=== PATIENT | female | born 1945 | race Caucasian/White ===

== ENCOUNTER 2022-09-29 14:53 | Inpatient (IN) | payer MEDICARE ==
[~2022-09-29] VITALS: Ht 175.3 cm; Wt 63.5 kg
[2022-09-29 15:33] LABS: HEMATOCRIT 35.3 % (31.2-41.9); MEAN CORPUSCULAR HEMOGLOBIN 28.5 uug (24.7-32.8); MEAN CORPUSCULAR VOLUME 87.5 fL (75.5-95.3); PLATELET COUNT (AUTO) 226 K/uL (179-408)
--- NOTE | 2022-09-29 15:40 | NUR ---
76 years old female sent to er for gravely disable awaiting for medical clearance.quiet cooperative with care.
[2022-09-29 16:00] LABS: ALANINE AMINOTRANSFERASE 17 U/L (14-59); ALKALINE PHOSPHATASE 67 U/L (50-136); ASPARTATE AMINOTRANSFERASE 15 U/L (15-37); BILIRUBIN,DIRECT 0.2 mg/dL (0.0-0.2); BILIRUBIN,TOTAL 0.3 mg/dL (0.2-1.0); CARBON DIOXIDE 29 mmol/L (21-32); CHLORIDE 106 mmol/L (98-107); CREATININE 0.8 mg/dL (0.6-1.3); GLUCOSE 100 mg/dL (74-106); POTASSIUM 4.2 mmol/L (3.5-5.1); TOTAL PROTEIN, SERUM 6.6 g/dL (6.4-8.2); UREA NITROGEN, BLOOD 19 mg/dL (7-18)
[2022-09-29 16:06] LABS: ETHANOL < 3 MG/DL (0-0)
[2022-09-29 16:10] LABS: *BILIRUBIN,URIN NEGATIVE (NEGATIVE); *CLARITY,URINE CLEAR (CLEAR); *COLOR,URINE YELLOW (YELLOW); *KETONES,URINE TRACE (NEGATIVE); *UROBILINOGEN,URINE 0.2 E.U./dl (NORMAL); LEUKOCYTE ESTERASE ,URINE NEGATIVE (NEGATIVE); NITRITE, URINE NEGATIVE (NEGATIVE); PH,URINE 5.5 (5.0-8.0); UGLUCOSE NEGATIVE (NEGATIVE)
[2022-09-29 16:19] LABS: *BLOOD, URINE TRACE (NEGATIVE)
[2022-09-29 16:19] LABS: ACETAMINOPHEN < 2.0 ug/mL (10-30)
[2022-09-29 16:28] LABS: *AMPHETAMINE, URINE NEGATIVE (NEGATIVE); *CANNABINOID, URINE NEGATIVE (NEGATIVE); *COCCAINE, URINE NEGATIVE (NEGATIVE); *PHENCYCLIDINE SCREEN,URINE NEGATIVE (NEGATIVE)
[2022-09-29 16:38] LABS: RBC,URINE 0-3 /HPF (0-3); WBC,URINE 0-3 /HPF (0-3)
--- NOTE | 2022-09-29 16:55 | NUR ---
Info for pt's daughter hank provided by [facility], .
--- NOTE | 2022-09-29 17:15 | NUR ---
patient medically cleared by Dr Wells.
--- NOTE | 2022-09-29 17:18 | NUR ---
call [phone] Grazyna for Pet evaluation and stated she will visit patient in ER later.
--- NOTE | 2022-09-29 19:04 | NUR ---
report endorsed to incoming RN all questions answered, Pet team at bedside to evaluate patient.
--- NOTE | 2022-09-29 19:31 | NUR ---
Pt. in room, wandering around, re-directing back to her room
[2022-09-29 21:30] VITALS: BP 131/60
[2022-09-29] MEDS ORDERED: ACETAMINOPHEN 325 MG TABLET PO PRN (21:45)
[2022-09-29] MEDS ORDERED: ZOLPIDEM 5 MG TABLET PO PRN (21:45)
[2022-09-29] MEDS ORDERED: MAG HYDROX/AL HYDROX/SIMETH 30 ML LIQUID UDC PO PRN (21:45)
[2022-09-29] MEDS ORDERED: MAGNESIUM HYDROXIDE 30 ML LIQUID UDC PO PRN (21:45)
--- NOTE | 2022-09-30 06:35 | NUR ---
Admission Note: Received 76 y/o female patient on a 5150 hold d/t being gravely disabled. Patient came from [facility] after being found wandering the streets, at her home, in the rain. Patient was experiencing paranoia, increased anxiety, and making delusional statements such as "my neighbors are going to kill me." "They're trying to poison me." "They're out to put a hit on me." Upon face to face assessment, patient was AOx2, somewhat confused, disoriented, and disheveled. She was making delusional statements such as "I know I'll be alright because my good friends Arvin and Flora Eisenberg are going to follow-up with me and look after me." Although she has an unsteady gait, she is self-ambulatory, and she has good balance when standing still. Pt was given her advisement with original copy placed into her Patient's Handbook at her bedside table. Briefly gave a tour of the unit and explained the rules of MHU. Personal belongings were accounted for and put into safe via HR ADMINISTRATIVE ASSISTANT and this nurse. Pt is a poor historian and strongly believes what she tells you is correct, when in actuality is incorrect. Pt is contracted for safety, and denies SI/HI. This pt will be in the care of 'mohan Rosen and Samuel.
[2022-09-30 07:30] VITALS: BP 141/41
--- NOTE | 2022-09-30 07:47 | NUR ---
Received patient in her room sitting on the chair, elevated mood, "Hello I know you, I am fine". patient feels she knows nurse, no S/S of discomforts noted, patient with lab getting blood draw at this time.
[2022-09-30 07:59] LABS: BILIRUBIN,TOTAL 0.4 mg/dL (0.2-1.0); CREATININE 0.7 mg/dL (0.6-1.3); POTASSIUM 4.4 mmol/L (3.5-5.1); TOTAL PROTEIN, SERUM 7.9 g/dL (6.4-8.2)
[2022-09-30 12:51] LABS: HEMATOCRIT 38.4 % (31.2-41.9); MEAN CORPUSCULAR HEMOGLOBIN 28.3 uug (24.7-32.8); MEAN CORPUSCULAR VOLUME 88.7 fL (75.5-95.3); PLATELET COUNT (AUTO) 240 K/uL (179-408)
[2022-09-30 16:00] VITALS: BP 131/53
--- NOTE | 2022-09-30 16:29 | NUR ---
MEKA Initial Discharge Note: Pt was brought to [facility] from [facility] [address] [address] . MEKA contacted pt's relative, Maddie ([phone]) and left a voicemail for a call back. MEKA will continue to work with pt, family and MD to ensure a safe and proper discharge plan.
--- NOTE | 2022-09-30 17:36 | NUR ---
Patient pacing around, hyperverbal, suspicious, paranoid, "I need a weapon, she trying to kill me, I want go, they have bomb". walking around at time pushing exit doors, patient was evaluated by dr Rosen, [facility]. patient also seen by SLURRY CONTROL TENDER, Patient stable, no S/S of discomfort.
[2022-09-30 20:13] LABS: THYROID STIMULATING HORMONE 2.131 mIU/mL (0.358-3.740)
[2022-09-30] MEDS ORDERED: OLANZAPINE 2.5 MG TABLET PO SCH (21:00)
--- NOTE | 2022-09-30 21:16 | NUR ---
GPS: Pt.is anxious,confused,paranoid and suspicious. Reality re-orientation provided prn. Has poor insight and judgment to present situation. Refused bedtime med.despite explanation of risks vs benefits x3. Safety checks Q15 minutes to ensure pt's safety and to know whereabouts. Denies pain. Will continue to re-direct prn.
[2022-09-30 21:21] VITALS: BP_SYST 106; BP_SYST 129; BP_DIAS 58; BP_DIAS 73
--- NOTE | 2022-09-30 23:35 | NUR ---
GPS: Pt.refused to have her nares swabbed for MRSA despite explanation of importance.
--- NOTE | 2022-10-01 01:16 | NUR ---
GPS: Pt.remains awake at this time. Paranoid,suspicious and confused. Refuses Benadryl 50 mg PO for sleep when offered numerous times. Has poor insight and impaired judgment. Needs frequent re-assurance and re-direction from staff. Safety emphasized. Will continue to monitor.
[2022-10-01] MEDS: OLANZAPINE 2.5 MG TABLET PO SCH ×2 (08:28→17:00)
--- NOTE | 2022-10-01 09:39 | NUR ---
Nursing- Poor insight, wanders around, difficulty redirecting patient , taking stuffs from other patient's room. Refusing care, refusing med. ref. v/s , Constantly being redirected , gets combative with staff. Patient put in damien-chair, for close supervision. Monitored for safety
--- NOTE | 2022-10-01 11:00 | NUR ---
Nursing -Patient has elevated WBC 18 (09/30/22) Jayashree RIDER in to see patient , made aware
--- NOTE | 2022-10-01 15:23 | NUR ---
Nursing- Out of the damien-chair, interacting with her peers, speech confused, incoherent, wanders around, constantly needing redirections, difficulty following directions.
[2022-10-01 16:00] VITALS: BP 146/36
[2022-10-01 20:00] VITALS: BP 137/50
--- NOTE | 2022-10-02 06:43 | NUR ---
GPS: Pt.slept 5.30 last night. Remains confused,paranoid and suspicious but more re-directable. Insight and judgment remains impaired. Safety emphasized. Needs attended. Will continue to monitor behavior.
[2022-10-02 08:00] VITALS: BP 123/51
[2022-10-02] MEDS: OLANZAPINE 2.5 MG TABLET PO SCH ×2 (09:00→17:00)
--- NOTE | 2022-10-02 09:00 | NUR ---
Faxed Angelo petition to court ,follow up to court spoke with Ange.
--- NOTE | 2022-10-02 11:00 | NUR ---
Nursing- Patient continue to wander around, goes room to room, constantly needing redirections. gets argumentative, intrusive , confused , disoriented , in and out of the activity room . Keep coming into the Nurses station .Safety reviewed , continue to emphasized.
[2022-10-02] MEDS ORDERED: OLANZAPINE 10 MG VIAL IM ONE (16:00)
--- NOTE | 2022-10-02 16:00 | NUR ---
Nursing- Per Security report, they noted patient pulled fire alarm in the activity room, patient does not remember doing it . Dr Rosen was called by manufacturing business analyst order received to administer Zyprexa 5 mg IM, Dr Rosen was informed of patients' multiple drug allergy. Boat Outboard Engine Mechanic was called to assist staff in administering IM med., uncooperative during the zyprexa IM administration
--- NOTE | 2022-10-02 16:00 | NUR ---
spoke with Dr. Rosen regarding patient has multiple drug allergies ,per Dr. Jessika burnett to give Zyprexa IM.
[2022-10-02 16:15] VITALS: BP 136/66
[2022-10-02 20:11] VITALS: BP 135/55
--- NOTE | 2022-10-03 06:26 | NUR ---
GPS: Pt.slept 5.45 last night. Remains confused,suspicious,labile and easily irritable when being re-directed. Safe environment provided. Insight and judgment remains impaired. Re-assured prn. Will continue to monitor behavior.
[2022-10-03 07:53] VITALS: BP 124/52
[2022-10-03] MEDS: OLANZAPINE 2.5 MG TABLET PO SCH ×2 (08:52→16:11)
--- NOTE | 2022-10-03 15:16 | NUR ---
GPS: Nursing Notes: Noncompliance With Medications: Patient is awake and responding to her name, labile, disoriented, gets easily irritable when redirected, refusing her medications, believes that she is a travel registered nurse oncology for her roommate, loud and pressured speech at times, isolative in her room, interactive with her roommate, unable to formulate a viable plan for self care, A/Ox1 at this time, refusing to participate in therapeutic groups, unkempt appearance, continue to monitor for safety, continue with treatment plan.
[2022-10-03 16:07] VITALS: BP 112/60
[2022-10-03 20:00] VITALS: BP 137/58
--- NOTE | 2022-10-04 05:15 | NUR ---
Received pt awake in room, A/O X1,confused, disoriented, labile, gets easily irritable when redirected, isolative in her room but wonders into other patients room, interactive with her roommate, unable to formulate a viable plan for self care,refusing to participate in therapeutic groups, unkempt appearance, continue to monitor for safety, continue with treatment plan.
[2022-10-04 08:38] VITALS: BP 140/45
[2022-10-04] MEDS: OLANZAPINE 2.5 MG TABLET PO SCH ×2 (08:44→16:21)
--- NOTE | 2022-10-04 11:43 | NUR ---
GPS: Nursing Notes: Noncompliance With Medication: Patient is awake and responding to her name, internally preoccupied, having auditory hallucinations, stated "Yes, I am coming..." when she was talking to staff, stated "I got to go.. Someone is calling my name.. Yes, I am coming..", redirected during shift, but she gets irritable, refusing her medication, stated "I already took my medication this morning..", A/Ox1, AWOL risk, wandering around looking to the exit door, believes that she needs to go home to take care of the kids, unable to formulate a viable plan for self care, resistant with nursing care, continue to monitor for safety, continue with treatment plan.
[2022-10-04 16:04] VITALS: BP 121/67
[2022-10-04 20:08] VITALS: BP 142/52
[2022-10-04] MEDS: diphenhydrAMINE 50 MG CAPSULE PO PRN (23:50)
--- NOTE | 2022-10-04 23:55 | NUR ---
Patient awake, pacing in the hallways, unable to sleep, refused to take Benadryl 50mg for sleep.
--- NOTE | 2022-10-05 03:30 | NUR ---
Patient awake seated at roommates bed, instructed patient to seat in the chair or to her own bed. Patient uncooperative with the care, refused medications, confused and has argumentative behavior, wanted to be release from this hospital, stated she does not belong here. Patient has paranoia about medications, and talking about the government told her not to take any medication from us, also stated that "president Arvin told her not take any medications", reorient patient but not effective. Also episode of patient and roommates in the station asking for their release from the hospital, makes extra noises in the station, refused to back to their room, asked the security for assistance, able to persuade patient and roommates to go back to their room, cont to teresita.
[2022-10-05] MEDS: OLANZAPINE 2.5 MG TABLET PO SCH ×4 (08:27→17:18)
[2022-10-05] MEDS ORDERED: OLANZAPINE 10 MG VIAL IM PRN (09:45)
--- NOTE | 2022-10-05 14:00 | NUR ---
GPS: Nursing Notes: Noncompliance With Medication: Patient is awake and responding to her name, impaired judgment, poor insight, refusing her psych. medication, given Zyprexa IM per Angelo and ordered by psychiatrist, resistant with nursing care, threatening to pull the fire alarm, stated "I want to leave this place.. I don't belong here..", paranoid behavior, believes that we are trying to poison her. Also, stated "President Arvin toll me not to take any medication..", A/Ox1, unable to formulate a viable plan for self care, continue with treatment plan.
[2022-10-05 16:20] VITALS: BP 121/48
[2022-10-05 19:50] VITALS: BP 136/68
--- NOTE | 2022-10-06 03:49 | NUR ---
Patient is confused at night. Unable to find her room, goes into other patients room constantly. Redirection and reorientation is ongoing during the shift. The patient did not have any routine medications ordered for the PM and refused PRN medications. Assistance required with ADLs. Safety Stratiges remain in place. Monitoring the patient for compliance and any behavior escalation. No acute distress noted at this time.
[2022-10-06 08:14] VITALS: BP 139/46
[2022-10-06] MEDS: OLANZAPINE 2.5 MG TABLET PO SCH (08:58)
[2022-10-06] MEDS: OLANZAPINE ZYDIS 5 MG TAB.RAPDIS PO SCH ×2 (12:58→16:35)
--- NOTE | 2022-10-06 13:11 | NUR ---
GPS: Nursing Notes: Noncompliant With Medication: Patient is awake and responding to her name, impaired judgment, resistant with nursing care at times, wandering around the unit, forgetful at times, needs assistance to find her room at times, needs a lot of prompting to be compliant with her medication, argumentative at times, unable to formulate a viable plan for self care, A/Ox2, continue to monitor for safety, continue with treatment plan.
--- NOTE | 2022-10-06 15:23 | NUR ---
MEKA Family Contact: MEKA spoke with pt's daughter, Maddie regarding pt's discharge plan to a prison facility upon discharge. Maddie is aware and agreeable that pt needs a snf for continuation of care prior to returning to her home. MEKA will continue to work with the pt and Maddie.
[2022-10-06 15:38] VITALS: BP 142/44
[2022-10-06 20:03] VITALS: BP 140/51
--- NOTE | 2022-10-07 06:38 | NUR ---
GPS: Pt.slept 5 hrs.last night. Remains confused,forgetful and disorganized. Poor insight and judgment to present situation. Less anxious and argumentative. Safety emphasized. Needs attended.
[2022-10-07 07:59] VITALS: BP 118/52
[2022-10-07] MEDS: OLANZAPINE ZYDIS 5 MG TAB.RAPDIS PO SCH ×3 (08:58→16:56)
[2022-10-07 15:02] VITALS: BP 129/55
--- NOTE | 2022-10-07 15:22 | NUR ---
Received pt sitting on bed in her room responding to her name.Pt is confused, forgetful,Paranoid, labile easily irritable.Pt needs a lot of prompting to take medications. Pt is argumentative and questions her medications. Pt states "why do i need to take this medication", "i need to talk to the Dr. before i take this medication", "I already took this medication" ,"Why do i need to take it again", "this medication has a lot of side effects are you surer i need to take this?". Pt took her medications with a lot of prompting and for afternoon medication pt asked to have it with putting so that it would not get stuck in her throat.Continue to monitor safety, continue to monitor for medication compliance, continue with treatment plan.
[2022-10-07 20:07] VITALS: BP 126/56
--- NOTE | 2022-10-08 06:19 | NUR ---
GPS: Remains labile,irritable,argumentative and paranoid. Re-directed and re-assured prn. Has poor insight to present situation. Confused and forgetful. Reality re-orientation provided. Slept for 4.30 last night. Assisted with her adl's prn. Safe environment provided.
[2022-10-08 08:00] VITALS: BP 102/45
[2022-10-08] MEDS ORDERED: OLANZAPINE 10 MG VIAL IM PRN (08:15)
[2022-10-08] MEDS: OLANZAPINE ZYDIS 5 MG TAB.RAPDIS PO SCH ×2 (09:05→21:16)
--- NOTE | 2022-10-08 15:55 | NUR ---
Gps/Hardness Tester- The Industrial Electrician was informed that the patient (Vannsea) took 2 tabs of pepcid 10 mg. (chewable tabs) which belong to her roommate, which the mother brought in during visiting hours w/o telling or notifying staff what she brought . As noted , the new RN Ruchi was the one who found out of the medications , and took away meds from patient. Dr Rosen was informed by RN in Charge Ange , as well as Radha WOODSON . Vital signs taken 146/54 HR 68 resp. 18 ,02 sat 100 %, will check vital signs q 4 hours as instructed .Patient in bed ,in no distress, asleep, arousable.. Will continue to monitor patient.
[2022-10-08 16:00] VITALS: BP_SYST 102; BP_SYST 110; BP_SYST 139; BP_DIAS 43; BP_DIAS 57; BP_DIAS 66
[2022-10-08] MEDS: diphenhydrAMINE 50 MG CAPSULE PO PRN (21:15)
[2022-10-08 21:22] VITALS: BP 150/62
--- NOTE | 2022-10-09 04:40 | NUR ---
Patient is confused, wonders around the unit and takes items that do not belong to her and misplaces her own things. Constant redirection is needed. A shower was provided with maximum assistance. This patient was resistant to take her medications. Encouragement and education given , plus reassurance as needed. Safety Stratiges are in place.Continuing to monitor for compliance.
[2022-10-09 07:39] VITALS: BP 135/41
[2022-10-09] MEDS: OLANZAPINE ZYDIS 5 MG TAB.RAPDIS PO SCH ×2 (08:54→21:00)
--- NOTE | 2022-10-09 15:00 | NUR ---
MEKA Family Contact: MEKA spoke with pt's daughter, Maddie [phone] who stated that they found paperwork justifying that the patient's granddaughter, Jackie Núñez ([phone]) is the pt's DPOA. MEKA provided Maddie with this SW's email to send the DPOA paperwork. MEKA will inform Dr. Rosen. Pt will be discharging to a fpc facility upon discharge.
[2022-10-09 15:43] VITALS: BP 139/58
--- NOTE | 2022-10-09 16:00 | NUR ---
Gps/Book Publisher-Ambulates around interacting with her selected peers, stayed in the activity room watching TV , making her simple needs known , redirections provided from time to time .
[2022-10-09 20:55] VITALS: BP 134/58
[2022-10-10 07:55] VITALS: BP 114/64
[2022-10-10] MEDS: OLANZAPINE ZYDIS 5 MG TAB.RAPDIS PO SCH ×2 (08:47→21:01)
--- NOTE | 2022-10-10 12:00 | NUR ---
Gps/Adjunct Faculty For Medical Terminology- Continue to wanders around, constantly being redirected , follows simple directions . Assisted with her simple hygiene . Less anxious, had been quiet , interacting with her roommate , continued compliance with her routine medications
[2022-10-10 18:13] VITALS: BP 134/54
[2022-10-10 21:18] VITALS: BP 118/60
--- NOTE | 2022-10-10 21:54 | NUR ---
RECEIVED REPORT FROM TOPHER STEPHANI.
--- NOTE | 2022-10-11 07:00 | NUR ---
REPORT GIVEN TO TOPHER GRIFFIN.
[2022-10-11 08:29] VITALS: BP 137/48
[2022-10-11] MEDS: OLANZAPINE ZYDIS 5 MG TAB.RAPDIS PO SCH ×2 (08:39→20:32)
[2022-10-11 16:30] VITALS: BP 149/46
--- NOTE | 2022-10-11 18:15 | NUR ---
Patient is very confused, always wandering in the hallway not knowing where to go, disoriented, disorganized, preoccupied, compliant with medications. Patient is A/O X 1 -2 to person. Patient requires more than minimal assistance with ADL. Ambulates without assistance. Reality orientation provided. Fall and safety precautions implemented.
[2022-10-11 20:24] VITALS: BP 145/46
[2022-10-11] MEDS: diphenhydrAMINE 50 MG CAPSULE PO PRN (20:32)
[2022-10-12 08:00] VITALS: BP 140/77
--- NOTE | 2022-10-12 09:12 | NUR ---
Firearms Report: Emergency Service Restorer completed and submitted a [employer] firearms report for 5150 grave disability certifications. A copy of report has been placed in patient chart.
[2022-10-12] MEDS: OLANZAPINE ZYDIS 5 MG TAB.RAPDIS PO SCH ×2 (09:40→20:18)
--- NOTE | 2022-10-12 12:35 | NUR ---
PATIENT IS ALERT AND ORIENTED X 2 NO SIGNS OF RESPIRATORY DISTRESS NOTED. PT INTERACTS WITH PEERS ON THE UNIT. PT VISITS THEM AND TALK WITH THEM. AMBULATE WITHOUT ASSIST BUT PT HAS A HX OF BEING AWOL RISK. PT ON 14 DAY HOLD GD IT EXPIRES ON 10/16/22. PT IS COMPLIANT WITH MEDICATION NO SIGNS OF RESPIRATORY DISTRESS NOTED. WILL MONITOR FOR ABNORMAL BEHIAVIOR.
[2022-10-12 16:32] VITALS: BP 118/43
[2022-10-12 19:51] VITALS: BP 126/62
--- NOTE | 2022-10-12 20:40 | NUR ---
GPS: Remains confused,disoriented and forgetful. Reality re-orientation provided prn. Took bedtime meds after some persuasion from staff. Continues to be argumentative,labile and irritable but less. Safe environment provided. Needs attended.
[2022-10-13 08:00] VITALS: BP 118/55
[2022-10-13] MEDS: OLANZAPINE ZYDIS 5 MG TAB.RAPDIS PO SCH ×2 (09:01→20:17)
--- NOTE | 2022-10-13 14:49 | NUR ---
Patient is very confused and forgetful, needs lots of redirection, wanders in the hallway not knowing where to go, compliant with medications, cooperative with nursing care. Patient is A/O X 1 to person. Patient ambulates without assistance, continent with few incontinence episodes, requires more than minimal assistance with ADL. Reality orientation provided. Fall and safety precautions implemented.
[2022-10-13 16:32] VITALS: BP 124/46
[2022-10-13 19:59] VITALS: BP 116/68
--- NOTE | 2022-10-14 06:46 | NUR ---
GPS: Pt.slept 5.30 last night. Remains confused,forgetful,paranoid and suspicious. Still tends to be argumentative with staff. Re-directed and re-assured prn. Safe environment provided. Needs attended.
[2022-10-14 08:00] VITALS: BP 128/56
[2022-10-14] MEDS: OLANZAPINE ZYDIS 5 MG TAB.RAPDIS PO SCH ×2 (08:13→20:51)
--- NOTE | 2022-10-14 12:40 | NUR ---
Patient isolative, cooperative, medication compliant. At this time eating lunch in her room. Pt is currently free from pain or any discomfort. Emotional support provided, Fall and safety precautions implemented. Will continue to monitor.
--- NOTE | 2022-10-14 14:44 | NUR ---
MEKA Family/DPOA Contact: MEKA contacted pt's granddaughter, Jackie Núñez ([phone]) and left a voicemail informing her that the pt was accepted to [facility] located at [address] [place] [address] ([phone]) via Ambulance transportation at 11AM on Wednesday10/16/22.
--- NOTE | 2022-10-14 14:48 | NUR ---
SW Family/DPOA Contact: Pt's granddaughter, Jackie Núñez ([phone]) returned this assembly instructions writer's call and confirmed that she is agreeable with the pt discharging to [facility] located at [address] [place] [address] ([phone]) via Ambulance transportation at 11AM on Wednesday10/16/22.
[2022-10-14 16:09] VITALS: BP 121/58
[2022-10-14 20:15] VITALS: BP 142/51
--- NOTE | 2022-10-15 00:30 | NUR ---
Patient was complaining that her medications makes her throat itch (when she is swallowing them), and wants to change them. Pt was overall compliant and took her 2100 hour scheduled meds.
[2022-10-15] MEDS: diphenhydrAMINE 50 MG CAPSULE PO PRN (03:14)
[2022-10-15 08:44] VITALS: BP 142/64
[2022-10-15] MEDS: OLANZAPINE ZYDIS 5 MG TAB.RAPDIS PO SCH ×2 (08:45→20:08)
[2022-10-15 15:45] VITALS: BP 150/55
--- NOTE | 2022-10-15 15:50 | NUR ---
Patient is isolative, preoccupied, confused, quiet, compliant with medications with prompts, forgetful. Patient states "You gave me this medication already. Why are giving me again?" Patient is A/O X 2 to person, place. Patient is encourage to verbalize concerns. Fall and safety precautions implemented.
[2022-10-15 21:12] VITALS: BP 150/57
--- NOTE | 2022-10-15 22:15 | NUR ---
GPS: Pt.asleep at this time. Resp.even and unlabored. Took bedtime meds.earlier without excuses. Insight and judgment remains impaired. Confused and forgetful. Re-assured and re-directed. Fall precautions observed. Will continue to monitor.
[2022-10-16 07:09] VITALS: BP 123/49
--- NOTE | 2022-10-16 08:26 | NUR ---
MEKA Discharge Note: Pt will be discharged to [facility] located at [address] [place] [address] ([phone]) via Ambulance transportation at 11AM. MEKA spoke with admin coordinator, Shaunna ([phone]) at the facility who states they are ready to accept the patient today. Pt is aware and agreeable with discharge plan. Pt's granddaughter, Jackie Núñez ([phone]) who is aware and agreebale with the discharge plan. MEKA spoke with pt's daughter, Maddie [phone] who is also aware and agreeable with the discharge plan. Pt is alert and oriented x2, is unable to plan for self-care at this time. However, pt is willing to accept care at SNF. Pt denies any suicidal or homicidal ideation. Pt will follow-up at the facility with Psychiatrist, Dr. Rosen ([phone]) and Manufacturers Representative, Dr. Butts. Pt presents with calm mood and congruent affect. [facility] ([phone]) [address] [address].
--- NOTE | 2022-10-16 08:35 | NUR ---
MEKA Discharge Screener: MEKA completed a discharge screener.
[2022-10-16] MEDS: OLANZAPINE ZYDIS 5 MG TAB.RAPDIS PO SCH (08:42)
--- NOTE | 2022-10-16 12:08 | NUR ---
Received orders to discharge this patient to [facility] located at [address] [place] [address] ([phone]) via Ambulance transportation at 11AM. Patient is agreeable with discharge plans, but refuses to sign discharge documentation. All belongings and valuables were given back to patient. Patient denies SI/HI AH/VH, SOB, pain or any discomfort. Patient left the unit at 11:45AM. Emotional support provided.
== END 2022-10-16 11:45 | DRG 885 ==
LOC: ER 14:53 → GPS 20:46
PROVIDERS: ADMIT Psychiatry & Neurology Psychiatry; ATTEND Nurse Practitioner Acute Care
DX: F29 Unspecified psychosis not due to a substance or known physiological condition (principal); F03.918 Unspecified dementia, unspecified severity, with other behavioral disturbance; F03.911 Unspecified dementia, unspecified severity, with agitation; K58.9 Irritable bowel syndrome, unspecified; F20.9 Schizophrenia, unspecified; Z91.83 Wandering in diseases classified elsewhere; D72.829 Elevated white blood cell count, unspecified; Z87.19 Personal history of other diseases of the digestive system; R26.81 Unsteadiness on feet; Z88.6 Allergy status to analgesic agent; Z88.1 Allergy status to other antibiotic agents; Z88.0 Allergy status to penicillin; Z88.8 Allergy status to other drugs, medicaments and biological substances; Z91.048 Other nonmedicinal substance allergy status
CPT/HCPCS: 36415; 70450; 71045; 82747; 84443; 85014; 85025; A4663; G0480; J2358; Q0163